=== PATIENT | female | born 1950 | race Caucasian/White ===

== ENCOUNTER 2023-10-07 06:38 | Day surgery (SDC) | payer OTHER ==
[~2023-10-07] VITALS: Ht 165.1 cm; Wt 95.3 kg
[2023-10-07] MEDS ORDERED: ONDANSETRON 4 MG ODT TAB ONE (06:48)
[2023-10-07] MEDS ORDERED: GABAPENTIN 400 MG CAPSULE ONE (06:49)
[2023-10-07] MEDS ORDERED: ACETAMINOPHEN 500 MG TABLET ONE (06:49)
[2023-10-07] MEDS ORDERED: SCOPOLAMINE HYDROBROMIDE 1 MG PATCH .72 H (TRANSDERM-SCOP) TD ONE (06:59)
[2023-10-07] MEDS ORDERED: oxyCODONE HCL 10 MG TAB.ER.12H PO ONE (07:00)
[2023-10-07] MEDS ORDERED: ceFAZolin SODIUM 2 GM in D5W 50 ML IV ONE (07:00)
[2023-10-07] MEDS ORDERED: CELECOXIB 200 MG CAPSULE ONE (07:00)
[2023-10-07] MEDS: CELECOXIB 200 MG CAPSULE PO ONE (07:49)
[2023-10-07] MEDS: SCOPOLAMINE HYDROBROMIDE 1 MG PATCH .72 H (TRANSDERM-SCOP) TD ONE (07:49)
[2023-10-07] MEDS: ONDANSETRON 4 MG ODT TAB PO ONE (07:49)
[2023-10-07] MEDS: ACETAMINOPHEN 500 MG TABLET PO ONE (07:49)
[2023-10-07] MEDS: oxyCODONE HCL 10 MG TAB.ER.12H PO ONE (07:49)
[2023-10-07] MEDS: GABAPENTIN 400 MG CAPSULE PO ONE (07:49)
[2023-10-07] MEDS: VANCOMYCIN HCL 1.25 GM/NS 250 ML IV ONE (07:55)
[2023-10-07] MEDS ORDERED: LR 1,000 ML IV.SOLN IV ONE (10:26)
[2023-10-07] MEDS ORDERED: ePHEDrine sulfate 50 MG/ML VIAL ONE (10:26)
[2023-10-07] MEDS ORDERED: DEXAMETHASONE SOD PHOSPHATE 4 MG/ML VIAL ONE (10:26)
[2023-10-07] MEDS ORDERED: NS IRRIG SOLN 5000 ML IR ONE (10:26)
[2023-10-07] MEDS ORDERED: ONDANSETRON HCL 4 MG/2 ML VIAL ONE (10:26)
[2023-10-07] MEDS ORDERED: PHENYLEPHRINE HCL 10 MG/ML VIAL (NEOSYNEPHRINE) ONE (10:26)
[2023-10-07] MEDS ORDERED: TRANEXAMIC ACID 1,000 MG/10 ML VIAL ONE (10:26)
[2023-10-07] MEDS ORDERED: POLYMYXIN B SULFATE 500,000 UNITS VIAL ONE (10:26)
[2023-10-07] MEDS ORDERED: BUPIVACAINE /PF 0.75% 10 ML VIAL INJ ONE (10:26)
[2023-10-07] MEDS ORDERED: VANCOMYCIN HCL 1000 MG/VIAL IV ONE (10:26)
[2023-10-07] MEDS ORDERED: ROPIVACAINE HCL/PF 5 MG/ML 0.5% 30 ML VIAL ONE (10:26)
[2023-10-07] MEDS ORDERED: MIDAZOLAM HCL 2 MG/2 ML VIAL (VERSED) ONE (10:27)
[2023-10-07 10:30] VITALS: O2SAT 97
[2023-10-07] MEDS ORDERED: LR 1,000 ML IV ONE (11:15)
[2023-10-07] MEDS ORDERED: fentaNYL CITRATE/PF 100 MCG/2 ML AMP IVP PRN ×2 (11:15)
[2023-10-07] MEDS ORDERED: HYDROmorphone 1 MG/ML INJ. CARTRIDGE IVP PRN (11:15)
[2023-10-07] MEDS ORDERED: ONDANSETRON HCL 4 MG/2 ML VIAL IVP PRN ×2 (11:15→13:30)
[2023-10-07] MEDS ORDERED: PROPOFOL DRIP 100 ML IV ONE (12:19)
[2023-10-07] MEDS ORDERED: fentaNYL CITRATE/PF 100 MCG/2 ML AMP ONE (12:31)
[2023-10-07] MEDS ORDERED: CEFAZOLIN 1 GM IVPB PREMIX 50 ML IV SCH (13:30)
[2023-10-07] MEDS ORDERED: HYDROcodone/ACETAMIN 7.5-325 MG TAB PO PRN (13:30)
[2023-10-07] MEDS ORDERED: ACETAMINOPHEN 325 MG TABLET PO PRN ×2 (13:30)
[2023-10-07] MEDS ORDERED: HYDROcodone/ACETAMIN 5-325 MG TAB (NORCO/ VICODIN) PO PRN (13:30)
[2023-10-07] MEDS ORDERED: SENNOSIDES 8.6 MG TABLET PO PRN (13:30)
[2023-10-07 16:21] VITALS: BP_SYST 110; PULSE 70; RESP 19
== END 2023-10-07 16:02 | disposition home or self-care (01) ==
LOC: SDS 06:38 → SMU 06:39 → SDS 16:02
PROVIDERS: ATTEND Orthopaedic Surgery
DX: M16.11 Unilateral primary osteoarthritis, right hip (principal); I10 Essential (primary) hypertension; E11.9 Type 2 diabetes mellitus without complications; E66.01 Morbid (severe) obesity due to excess calories; E78.5 Hyperlipidemia, unspecified; Z79.899 Other long term (current) drug therapy; Z88.2 Allergy status to sulfonamides; Z87.828 Personal history of other (healed) physical injury and trauma; Z91.89 Other specified personal risk factors, not elsewhere classified; Z68.35 Body mass index [BMI] 35.0-35.9, adult; Z90.89 Acquired absence of other organs; Z98.890 Other specified postprocedural states; Z83.49 Family history of other endocrine, nutritional and metabolic diseases; Z80.8 Family history of malignant neoplasm of other organs or systems
CPT/HCPCS: 27130; 86886; 86900; 86901; 36415; 73502; 97110; 97530; 97116; 97162; 88304; 88311; Q0162; J3490 ×2; J1100; J3465; J2405; J2370; J2704; J3370 ×2; J3010; J7060; J7120; A4649; C1776